=== PATIENT | female | born 1980 | race African-American/Black ===

== ENCOUNTER 2016-11-02 10:20 | Emergency (ER) | payer OTHER ==
[2016-11-02 10:33] VITALS: BP 119/73; PULSE 81; TEMP 98; BMI 35.4
[2016-11-02] MEDS ORDERED: KETOROLAC TROMETHAMINE 60 MG/2 ML VIAL IM ONE (10:58)
[2016-11-02] MEDS ORDERED: KETOROLAC TROMETHAMINE 60 MG/2 ML VIAL ONE (11:00)
--- NOTE | 2016-11-02 11:02 | PDOC ---
History of Present Illness - General Chief Complaint: Pain Stated Complaint: PAIN Time Seen by Provider: 11/02/16 10:32 History Source: Patient Exam Limitations: No Limitations - History of Present Illness Initial Comments: 11/02/16 10:56 Patient is a 36-year-old female with history of high cholesterol and insulin resistance presents emergency department for evaluation of left-sided facial pain, pain to left ear and left side of neck. Patient also with nasal congestion. Productive cough. Afebrile. Patient denies any chest pain or shortness of breath, no neurosensory deficits, no facial droop, no lymphadenopathy no difficulty swallowing no difficulty breathing. Past Medical History: Denies. Allergies: No known allergies Family History: Non-contributory Social History: 5 cigarettes per day, alcohol use, or IVDU Review of Systems GENERAL/CONSTITUTIONAL: No fever or chills. No weakness. No weight change. HEAD, EYES, EARS, NOSE AND THROAT: No change in vision. No ear pain or discharge. No sore throat. Nasal congestion CARDIOVASCULAR: No chest pain or shortness of breath. RESPIRATORY: No cough, wheezing, or hemoptysis. GASTROINTESTINAL: No nausea, vomiting, diarrhea or constipation. No rectal bleeding. GENITOURINARY: No dysuria, frequency, or change in urination. MUSCULOSKELETAL: No joint or muscle swelling or pain. No neck or back pain. SKIN AND BREASTS: No rash or easy bruising. NEUROLOGIC: No headache, vertigo, loss of consciousness, or loss of sensation. PSYCHIATRIC: No depression or anxiety. ENDOCRINE: No increased thirst. No abnormal weight change. HEMATOLOGIC/LYMPHATIC: No anemia, easy bleeding, or history of blood clots. ALLERGIC/IMMUNOLOGIC: No hives or skin allergy. No latex allergy. Physical Exam: GENERAL: The patient is awake, alert, and fully oriented, in no acute distress. HEAD: Normal with no signs of trauma. EYES: Pupils equal, round and reactive to light, extraocular movements intact, sclera anicteric, conjunctiva clear. ENT: Ears normal, nares erythematous with exudate on left, normal on right oropharynx clear without exudates. Moist mucous membranes. No uvula deviation, left frontal and ethmoid sinus pressure and pain NECK: Normal range of motion, supple without lymphadenopathy, JVD, or masses. LUNGS: Rhonchi, No wheezes, and no crackles. HEART: Regular rate and rhythm, normal S1 and S2 without murmur, rub or gallop. ABDOMEN: Soft, nontender, normoactive bowel sounds. No guarding, no rebound. No masses. No bruising or abrasions MUSCULOSKELETAL: Normal range of motion, no edema. No clubbing or cyanosis. No cords, erythema, or tenderness. No CVA Tenderness with fist palpation. NEUROLOGICAL: Cranial nerves II through XII grossly intact. Normal speech, normal gait. SKIN: Warm, Dry, normal turgor, no rashes or lesions noted. 11/02/16 11:02 Timing/Duration: other (3 days) Past History - Past Medical History Allergies/Adverse Reactions: Allergies Allergy/AdvReac Type Severity Reaction Status Date / Time No Known Allergies Allergy Verified 11/02/16 10:26 Home Medications: Ambulatory Orders Levonorgestrel-Eth Estradiol [Seasonale] 1 each PO DAILY 05/10/14 Amoxicillin/Potassium Clav [Augmentin 875-125 Tablet] 1 each PO BID #14 tablet 11/02/16 Mometasone Furoate 17 gm NS BID #1 spray.pump 11/02/16 Other medical history: none - Immunization History Immunization Up to Date: Yes - Psycho/Social/Smoking Cessation Hx Anxiety: No Suicidal Ideation: No Smoking History: Current every day smoker Have you smoked in the past 12 months: Yes Number of Cigarettes Smoked Daily: 5 Information on smoking cessation initiated: Yes 'Breaking Loose' booklet given: 11/02/16 Hx Alcohol Use: No Drug/Substance Use Hx: No Substance Use Type: None *Physical Exam - Vital Signs Last Vital Signs Temp Pulse Resp BP Pulse Ox 98.0 F 81 18 119/73 100 11/02/16 10:27 11/02/16 10:27 11/02/16 10:27 11/02/16 10:27 11/02/16 10:27 Medical Decision Making - Medical Decision Making 11/02/16 11:00 A/P: Patient with acute sinusitis, pain is 10 out of 10, Toradol 60 mg IM given. I will discharge patient home on Nasonex and Augmentin. Motrin for pain follow up on Thursday with PMD I discussed the physical exam findings, ancillary test results and final diagnoses with the patient. I answered all of the patient's questions. The patient was satisfied with the care received and felt comfortable with the discharge plan and treatment plan. The patient will call to arrange follow-up and will return to the Emergency Department with any new, persistent or worsening symptoms. *DC/Admit/Observation/Transfer Diagnosis at time of Disposition: Sinusitis Qualifiers: Sinusitis location: frontal Chronicity: acute Recurrence: non-recurrent Qualified Code(s): J01.10 - Acute frontal sinusitis, unspecified - Discharge Dispostion Disposition: HOME Condition at time of disposition: Good Admit: No - Prescriptions Prescriptions: Amoxicillin/Potassium Clav [Augmentin 875-125 Tablet] 1 each PO BID #14 tablet Mometasone Furoate 17 gm NS BID #1 spray.pump - Referrals Referrals: Snow Del Castillo MD [Primary Care Provider] - - Patient Instructions Printed Discharge Instructions: Sinusitis Additional Instructions: If any increased pain, numbness or tingling, chest pain, neurosensory deficits, or any other concerns return to ER Please take Motrin [id number] 800 mg every 8 hours as needed for pain Take with food Recommend follow-up with primary care doctor on Thursday if symptoms are not starting to resolve
== END 2016-11-02 11:09 | disposition home or self-care (01) ==
LOC: JERFT 10:20
PROC: 3E0233Z Introduction of Anti-inflammatory into Muscle, Percutaneous Approach (ICD-10-PCS; principal; 2016-11-02)
DX: J01.10 Acute frontal sinusitis, unspecified (principal)
CPT/HCPCS: 99281-25

== ENCOUNTER 2018-03-03 07:33 | Day surgery (SDC) | payer BC ==
[2018-02-24 13:45] VITALS: BMI 39.6
[2018-03-03] MEDS ORDERED: LIDOCAINE HCL/PF 2% SDV 5ML VIAL ONE (07:39)
[2018-03-03] MEDS ORDERED: PROPOFOL 20 ML ONE ×2 (07:39)
[2018-03-03 07:49] VITALS: TEMP 97.7
[2018-03-03 10:10] VITALS: BP 115/76; PULSE 84
--- NOTE | 2018-03-05 12:11 | PATH ---
Surgical Pathology Report Patient Name: LARISSA COOK [facility]. Rec. #: [id number] /Age/Gender: 1980 (Age: 37) / F Account: [id number] Location: [facility] Taken: 03/03/2018 Received: 03/03/2018 Reported: 03/05/2018 Physicians: Ruben Garibay M.D. Specimen(s) Received A: DUODENUM B: ANTRUM Clinical History r/o celiac, gastritis Final Diagnosis A. DUODENUM, BIOPSY: DUODENAL MUCOSA WITH NO PATHOLOGIC FINDINGS. Note: Features suggestive of celiac disease are not identified in this biopsy. B. ANTRUM, BIOPSY: MODERATE CHRONIC GASTRITIS. IMMUNOSTAIN IS NEGATIVE FOR H. PYLORI ORGANISMS. Electronically Signed Arielle Menjivar M.D. Gross Description A. Received in formalin, labeled "duodenum" and three pieces of hagan tissue ranging from 0.2-0.4 cm in greatest dimension. Entirely submitted in one cassette. B. Received in formalin, labeled "antrum" and two pieces of hagan tissue measuring 0.3 cm and 0.4 cm in dimension. Entirely submitted in one cassette. ebram/03/03/2018
== END 2018-03-03 10:05 | disposition home or self-care (01) ==
LOC: FASU-ENDO 07:33
PROVIDERS: ATTEND Internal Medicine Gastroenterology
PROC: 0DB98ZX Excision of Duodenum, Via Natural or Artificial Opening Endoscopic, Diagnostic (ICD-10-PCS; principal; 2018-03-03 09:16)
PROC: 0DB68ZX Excision of Stomach, Via Natural or Artificial Opening Endoscopic, Diagnostic (ICD-10-PCS; 2018-03-03 09:16)
DX: K29.50 Unspecified chronic gastritis without bleeding (principal); R10.13 Epigastric pain; R12 Heartburn
CPT/HCPCS: 84703; 88305-TC; 88342-TC

== ENCOUNTER 2021-05-30 13:14 | Emergency (ER) | payer BC ==
[2021-05-30 13:22] VITALS: BP 136/85; PULSE 89; TEMP 98.7; BMI 40.7
[2021-05-30] MEDS ORDERED: ACETAMINOPHEN 500 MG TABLET (FP) PO ONE (15:55)
[2021-05-30] MEDS ORDERED: ACETAMINOPHEN INJECTION 100 ML IVPB ONE (16:08)
[2021-05-30 17:48] LABS: CALCIUM 9.3 mg/dL (8.5-10.1)
[2021-05-30 17:49] LABS: ALBUMIN 3.8 g/dl (3.4-5.0); BLOOD UREA NITROGEN 5.2 mg/dL (7-18)
[2021-05-30 17:51] LABS: BASO % 0.5 % (0-2.0); EOS % 2.3 % (0-4.5); HEMATOCRIT 40.4 % (32.4-45.2); HEMOGLOBIN 13.4 GM/dL (10.7-15.3); LYMPH % 27.7 % (8-40); MCH 27.3 pg (25.7-33.7); MCHC 33.1 g/dl (32.0-36.0); MEAN CELL VOLUME 82.6 fl (80-96); MEAN PLT VOLUME 8.3 fl (7.5-11.1); MONO % 4.9 % (3.8-10.2); NEUT % 64.6 % (42.8-82.8); PLATELET COUNT 389 10^3/uL (134-434); RBC 4.89 M/mm3 (3.60-5.2); RDW 14.6 % (11.6-15.6); WHITE BLOOD COUNT 11.8 K/mm3 (4.0-10.0)
[2021-05-30 17:53] LABS: BILIRUBIN,TOTAL 0.5 mg/dL (0.2-1); TOT PROT 8.1 g/dl (6.4-8.2)
[2021-05-30 19:13] LABS: EPI CELLS 34 /uL (0-25.1); HCG,QUALITATIVE URINE Negative; HYALINE CASTS 1 /uL (0-3.1); PH,URINE 5.5 (5.0-8.0); URINE APPEARANCE CLEAR; URINE BACTERIA 264 /uL (0-1359); URINE BILIRUBIN NEGATIVE (NEGATIVE); URINE COLOR YELLOW; URINE GLUCOSE (UA) NEGATIVE (NEGATIVE); URINE KETONE TRACE (NEGATIVE); URINE LEUK ESTERASE NEGATIVE (NEGATIVE); URINE NITRITE NEGATIVE (NEGATIVE); URINE PROTEIN NEGATIVE (NEGATIVE); URINE RBC 12 /uL (0-23.9); URINE UROBILINOGEN 0.2 mg/dL (0.2-1.0); URINE WBC 3 /uL (0-25.8)
[2021-05-30] MEDS ORDERED: AMOX TR/POT CLAV 875MG/125MG TABLETS (FP) PO ONE (23:32)
[2021-05-30] MEDS ORDERED: AMOX TR/POT CLAV 875MG/125MG TABLETS (FP) ONE (23:34)
== END 2021-05-30 23:53 | disposition home or self-care (01) ==
LOC: JER 13:14
DX: K57.32 Diverticulitis of large intestine without perforation or abscess without bleeding (principal); N83.201 Unspecified ovarian cyst, right side
CPT/HCPCS: 36415; 74177-TC; 76830-TC; 80053; 81003; 84443; 84703; 85025; 87086; 87186; 93005; 93010; 99285-25; Q9967

== ENCOUNTER 2022-05-31 08:21 | Emergency (ER) | payer BC ==
[2022-05-31 08:32] VITALS: BP 125/92; PULSE 79; RESP 18; TEMP 98; BMI 41.4
[2022-05-31] MEDS ORDERED: ACETAMINOPHEN 500 MG TABLET (FP) PO ONE (08:36)
[2022-05-31] MEDS ORDERED: LIDOCAINE 5% TOPICAL PATCH TP ONE (08:36)
[2022-05-31] MEDS ORDERED: diazePAM 5 MG TABLET PO ONE (08:36)
[2022-05-31] MEDS ORDERED: KETOROLAC TROMETHAMINE 30 MG/1 ML VIAL IM ONE (08:36)
[2022-05-31] MEDS ORDERED: diazePAM 5 MG TABLET ONE (08:43)
[2022-05-31] MEDS ORDERED: ACETAMINOPHEN 325 MG TABLET (FP) ONE (08:43)
[2022-05-31] MEDS ORDERED: LIDOCAINE 5% TOPICAL PATCH ONE (08:44)
[2022-05-31] MEDS ORDERED: KETOROLAC TROMETHAMINE 30 MG/1 ML VIAL ONE (08:44)
[2022-05-31 10:00] LABS: EPI CELLS >36 /uL (0-25.1); HYALINE CASTS 1 /uL (0-3.1); PH,URINE 5.5 (5.0-8.0); URINE APPEARANCE CLOUDY; URINE BACTERIA 392 /uL (0-1359); URINE BILIRUBIN NEGATIVE (NEGATIVE); URINE COLOR YELLOW; URINE GLUCOSE (UA) NEGATIVE (NEGATIVE); URINE KETONE NEGATIVE (NEGATIVE); URINE LEUK ESTERASE NEGATIVE (NEGATIVE); URINE NITRITE NEGATIVE (NEGATIVE); URINE PROTEIN TRACE (NEGATIVE); URINE UROBILINOGEN 0.2 mg/dL (0.2-1.0); URINE WBC 5 /uL (0-25.8)
[2022-05-31 10:12] LABS: URINE RBC 27 /uL (0-23.9)
[2022-05-31] MEDS ORDERED: LIDOCAINE PATCH REMOVAL MC SCH (22:00)
== END 2022-05-31 10:18 | disposition home or self-care (01) ==
LOC: JERFT 08:21
PROC: 3E0233Z Introduction of Anti-inflammatory into Muscle, Percutaneous Approach (ICD-10-PCS; principal; 2022-05-31)
DX: M54.50 Low back pain, unspecified (principal)
CPT/HCPCS: 81003; 87086; 99284-25

== ENCOUNTER 2024-03-27 04:25 | Emergency (ER) | payer BC ==
[2024-03-27 04:36] VITALS: BP 117/81; PULSE 103; RESP 16; TEMP 98.1; BMI 41.4
[2024-03-27] MEDS ORDERED: FLUCONAZOLE 150 MG TABLET PO ONE (05:06)
[2024-03-27] MEDS: FLUCONAZOLE 150 MG TABLET PO ONE (05:16)
[2024-03-27] MEDS: HYDROCORTISONE 0.5% TOPICAL CREAM 30 GM TUBE TP ONE (05:16)
[2024-03-27 06:33] LABS: EPI CELLS 19 /uL (0-25.1); HYALINE CASTS 1 /uL (0-3.1); PH,URINE 5.5 (5.0-8.0); URINE APPEARANCE TURBID; URINE BACTERIA 8 /uL (0-1359); URINE BILIRUBIN NEGATIVE (NEGATIVE); URINE COLOR YELLOW; URINE GLUCOSE (UA) NEGATIVE (NEGATIVE); URINE KETONE TRACE (NEGATIVE); URINE LEUK ESTERASE 1+ (NEGATIVE); URINE NITRITE NEGATIVE (NEGATIVE); URINE PROTEIN NEGATIVE (NEGATIVE); URINE RBC 82 /uL (0-23.9); URINE WBC 55 /uL (0-25.8)
[2024-03-27] MEDS ORDERED: CEPHALEXIN MONOHYDRATE 500 MG CAPSULE (UD) ONE (06:39)
[2024-03-27] MEDS: CEPHALEXIN MONOHYDRATE 500 MG CAPSULE (UD) PO ONE (06:42)
[2024-03-27 06:48] LABS: HCG,QUALITATIVE URINE NEGATIVE
[2024-03-27 07:39] LABS: URINE CRYSTALS NEGATIVE /hpf
== END 2024-03-27 06:44 | disposition home or self-care (01) ==
LOC: FER 04:25
DX: N89.8 Other specified noninflammatory disorders of vagina (principal)
CPT/HCPCS: 81003; 84703; 87086; 99283-25